=== PATIENT | female | born 1955 | race Caucasian/White ===

== ENCOUNTER 2017-04-16 08:53 | Emergency (ER) | payer MEDICARE, OTHER | END 2017-04-16 10:23 | disposition home or self-care (01) | LOC: ER1 08:53 | DX: S91.201A Unspecified open wound of right great toe with damage to nail, initial encounter (principal); I48.91 Unspecified atrial fibrillation; Z88.0 Allergy status to penicillin; Z88.1 Allergy status to other antibiotic agents; X58.XXXA Exposure to other specified factors, initial encounter; Y93.89 Activity, other specified; Y92.009 Unspecified place in unspecified non-institutional (private) residence as the place of occurrence of the external cause | CPT/HCPCS: 90471; 90715; 99283 ==